=== PATIENT | female | born 1985 | race Caucasian/White ===

== ENCOUNTER → 2017-04-29 | Outpatient (CLI) | payer OTHER ==
[2015-02-11 16:15] VITALS: BP 127/83
[2017-05-03 07:02] LABS: HEPATITIS A ANTIBODY IGM Negative (Negative)
== END ==
LOC: LAB 20:09
PROVIDERS: ATTEND Internal Medicine
DX: W46.1XXA Contact with contaminated hypodermic needle, initial encounter (principal)
CPT/HCPCS: 36415; 86701; 86706; 86803; 87340